=== PATIENT | female | born 1995 | race African-American/Black ===

== ENCOUNTER 2017-05-12 10:55 | Emergency (ER) | payer OTHER ==
[2017-05-12 11:22] VITALS: BP 152/70; PULSE 96; TEMP 98.3; BMI 31.1
--- NOTE | 2017-05-12 13:01 | PDOC ---
History of Present Illness - General Chief Complaint: Ear Problem Stated Complaint: LT EAR PAIN Time Seen by Provider: 05/12/17 12:38 History Source: Patient Exam Limitations: No Limitations - History of Present Illness Initial Comments: 05/12/17 12:56 22 yr female with c/o left ear pain for 2 days with swollen lymph node behind her ear. no fever no chills no throat pain no dental pain. Severity: mild Past History - Past Medical History Allergies/Adverse Reactions: Allergies Allergy/AdvReac Type Severity Reaction Status Date / Time No Known Allergies Allergy Verified 05/12/17 11:20 Home Medications: Ambulatory Orders Vit/Iron Fumarate/FA [ Tablet] 1 tab PO DAILY 02/19/16 Amoxicillin - [Amoxicillin 500mg Capsule -] 500 mg PO BID #14 capsule 05/12/17 Ciprofloxacin HCl/Dexameth [Ciprodex Otic Suspension] 3 drop BID #1 bottle Anemia: No Asthma: Yes Cancer: No Cardiac Disorders: No CVA: No COPD: No CHF: No Dementia: No Diabetes: No GI Disorders: No Disorders: No HTN: No Hypercholesterolemia: No Liver Disease: No Seizures: No Thyroid Disease: No - Surgical History Abdominal Surgery: No Appendectomy: No Cardiac Surgery: No Cholecystectomy: No Lung Surgery: No Neurologic Surgery: No Orthopedic Surgery: No - Immunization History Immunization Up to Date: Yes - Suicide/Smoking/Psychosocial Hx Smoking History: Never smoked Have you smoked in the past 12 months: No Hx Alcohol Use: No Drug/Substance Use Hx: No Substance Use Type: None Review of Systems - Review of Systems Able to Perform ROS?: Yes Is the patient limited Divehi proficient: No Constitutional: No: Symptoms Reported HEENTM: Yes: See HPI Respiratory: No: Symptoms reported Cardiac (ROS): No: Symptoms Reported ABD/GI: No: Symptoms Reported *Physical Exam - Vital Signs Last Vital Signs Temp Pulse Resp BP Pulse Ox 98.3 F 96 H 20 152/70 99 05/12/17 11:20 05/12/17 11:20 05/12/17 11:20 05/12/17 11:20 05/12/17 11:20 - Physical Exam General Appearance: Yes: Nourished, Appropriately Dressed HEENT: positive: EOMI, SAMMI, TM Bulging, TM Dull (narrowing of canal left ear with painful tragus, neg mastoid tenderness, swollen lymph node post auricular ) , TM Erythema Neck: positive: Supple. negative: Tender Respiratory/Chest: positive: Lungs Clear, Normal Breath Sounds Cardiovascular: positive: Regular Rhythm, Regular Rate Gastrointestinal/Abdominal: positive: Normal Bowel Sounds, Soft Musculoskeletal: positive: Normal Inspection Extremity: positive: Normal Capillary Refill, Normal Inspection, Normal Range of Motion Integumentary: positive: Normal Color, Dry, Warm Neurologic: positive: Alert, Normal Mood/Affect, Normal Response, Motor Strength /5 Medical Decision Making - Medical Decision Making 05/12/17 12:58 cc: left ear pain swollen lymph node neg fever neg swimming or travel on airplane denies congestion will treat for otitis externa and AOM, as the TM is bulging and dull pt agrees with plan of care all questions asked and answered at discharge. 05/12/17 23:37 *DC/Admit/Observation/Transfer Diagnosis at time of Disposition: Otitis externa Qualifiers: Otitis externa type: unspecified type Chronicity: acute Laterality: left Qualified Code(s): H60.502 - Unspecified acute noninfective otitis externa, left ear - Prescriptions Prescriptions: Amoxicillin - [Amoxicillin 500mg Capsule -] 500 mg PO BID #14 capsule Ciprofloxacin HCl/Dexameth [Ciprodex Otic Suspension] 3 drop BID #1 bottle - Referrals Referrals: Alton Wylie MD [Primary Care Provider] - Vic Dhillon MD [Staff Physician] - - Patient Instructions Additional Instructions: follow with the ENT doctor for follow up if symptoms worsen or do not improve take the medication as prescribed, continue to take motrin for pain
== END 2017-05-12 13:09 | disposition home or self-care (01) ==
LOC: JERFT 10:55
DX: H60.502 Unspecified acute noninfective otitis externa, left ear (principal)
CPT/HCPCS: 99281-25

== ENCOUNTER 2020-06-03 20:07 | Emergency (ER) | payer OTHER ==
[2020-06-03 20:19] VITALS: BP 114/72; PULSE 76; TEMP 98.5; BMI 19.3
--- OUTSIDE RECORDS SUMMARY | 2020-06-03 20:32 | XMS ---
:1995 Author Organization [facility] Support Name Relationship Address Phone [employer] Unavailable [address] [place] [address] SHAYAN JEWELL MOTHER [address] [phone] [place] [address] Re-disclosure Warning The records that you are about to access may contain information from federally- assisted alcohol or drug abuse programs. If such information is present, then the following federally mandated warning applies: This information has been disclosed to you from records protected by federal confidentiality rules (42 CFR part 2). The federal rules prohibit you from making any further disclosure of this information unless further disclosure is expressly permitted by the written consent of the person to whom it pertains or as otherwise permitted by 42 CFR part 2. A general authorization for the release of medical or other information is NOT sufficient for this purpose. The Federal rules restrict any use of the information to criminally investigate or prosecute any alcohol or drug abuse patient.The records that you are about to access may contain highly sensitive health information, the redisclosure of which is protected by Article 27-F of the [facility] Public Health law. If you continue you may haveaccess to information: Regarding HIV / AIDS; Provided by facilities licensed or operated by the [facility] Office of Mental Health; or Provided by the [facility] Office for People With Developmental Disabilities. If such information is present, then the following [facility] mandated warning applies: This information has been disclosed to you from confidential records which are protected by state law. State law prohibits you from making any further disclosure of this information without the specific written consent of the person to whom it pertains, or as otherwise permitted by law. Any unauthorized further disclosure in violation of state law may result in a fine or residential sentence or both. A general authorization for the release of medical or other information is NOT sufficient authorization for further disclosure. Insurance Providers Payer name Policy type Policy ID Covered Covered republican's Policy P moses / Coverage republican ID relationship to [employer] type [employer] [id number] SP [id number]
--- NOTE | 2020-06-03 20:34 | PDOC ---
History of Present Illness - General Chief Complaint: Nausea/Vomiting Stated Complaint: VOMITING Time Seen by Provider: 06/03/20 20:22 History Source: Patient Exam Limitations: No Limitations - History of Present Illness Initial Comments: 06/03/20 20:31 Pt is a 25-year-old female no past medical history presents to the ED with complaint of a cough that she has had for the last 1 week. She states her symptoms initially started as a sore throat which resolved with taking honey. Subsequently the cough developed. She states she has sputum production. She denies any shortness of breath. She states she is having posttussive emesis secondary to how much she is coughing. The cough keeps her up at night. She denies any fevers or chills. She denies any recent travel outside of the within the last 30 days or outside of [place] within the last 15. She denies any known Covid contacts. Past History - Medical History Allergies/Adverse Reactions: Allergies Allergy/AdvReac Type Severity Reaction Status Date / Time No Known Allergies Allergy Verified 05/12/17 11:20 Home Medications: Ambulatory Orders Vit/Iron Fum/Folic AC [ Tablet] 1 tab PO DAILY 02/19/16 Amoxicillin - [Amoxicillin 500mg Capsule -] 500 mg PO BID #14 capsule 05/12/17 Ciprofloxacin HCl/Dexameth [Ciprodex Otic Suspension] 3 drop BID #1 bottle 05/12/17 Albuterol Sulfate [Albuterol Sulfate Hfa] 2 puff IH Q4H PRN #1 hfa.aer.ad 06/03/20 Benzonatate [Tessalon Pearls -] 100 mg PO TID PRN #21 capsule 06/03/20 Anemia: No Asthma: Yes Cancer: No Cardiac Disorders: No CVA: No COPD: No CHF: No Dementia: No Diabetes: No GI Disorders: No Disorders: No HTN: No Hypercholesterolemia: No Liver Disease: No Seizures: No Thyroid Disease: No - Surgical History Abdominal Surgery: No Appendectomy: No Cardiac Surgery: No Cholecystectomy: No Lung Surgery: No Neurologic Surgery: No Orthopedic Surgery: No - Reproductive History Is Patient Now?: No - Immunization History Immunization Up to Date: Yes - Psycho-Social/Smoking History Smoking History: Current some day smoker Have you smoked in the past 12 months: No Number of Cigarettes Smoked Daily: 1 Information on smoking cessation initiated: Yes - Substance Abuse Hx (Audit-C & DAST Scrn) How often the patient has a drink containing alcohol: Never Score: In Men: 4 or > Positive; In Women: 3 or > Positive: 0 Screen Result (Pos requires Nsg. Audit-10AR): Negative Review of Systems - Review of Systems Comments:: 06/03/20 20:32 - Review of Systems Able to Perform ROS?: Yes Constitutional: No: Fever, Chills, Loss of Appetite, Night Sweats, Weakness HEENTM: No: Eye Pain, Vision changes, Ear Pain, Throat Pain, Throat Swelling, Mouth Pain, Difficulty Swallowing; resolved sore throat Respiratory: No: Shortness of Breath, Wheezing, positive: Cough, Sputum Production Cardiac (ROS): No: Chest Pain, Chest Tightness, Palpitations, Irregular Heart Beat, Edema ABD/GI: No: Nausea, Vomiting, Abdominal Pain, Diarrhea; positive: Posttussive emesis : No Dysuria, No Hematuria, No Frequency, No Urgency Musculoskeletal: No: Muscle Pain, Back Pain, Joint Pain, Muscle Weakness, Neck P ain Integumentary: No: Lesions, Rash Neurological: No: Headache, Numbness, Tingling, Weakness, Speech Difficulties *Physical Exam - Vital Signs Last Vital Signs Temp Pulse Resp BP Pulse Ox 98.5 F 76 20 114/72 100 06/03/20 20:14 06/03/20 20:14 06/03/20 20:14 06/03/20 20:14 06/03/20 20:14 - Physical Exam 06/03/20 20:33 - Physical Exam General Appearance: Nourished, Appropriately Dressed, No Distress HEENT: EOMI, Normal Voice, No Pharyngeal Erythema, No Muffled/Hoarse voice, No Tonsillar Exudate, No Tonsillar Erythema, No Nasal Congestion, No Rhinorrhea, Hearing Grossly Normal Neck: Supple, No Lymphadenopathy (R), No Lymphadenopathy (L), No Rigidity, No Decreased range of motion Respiratory/Chest: Lungs Clear, Normal Breath Sounds. No Respiratory Distress, No Accessory Muscle Use; good air entry bilaterally. No adventitious lung sounds appreciated. No wheezes/rales/rhonchi. Cardiovascular: Regular Rhythm, Regular Rate, S1, S2 Gastrointestinal/Abdominal: Normal Bowel Sounds, Soft. Non-tender, No Guarding, No Rebound, No Rigidity Musculoskeletal: Normal Inspection. No Decreased Range of Motion Extremity: Normal Capillary Refill, Normal Inspection Integumentary: Normal Color, Dry. No Rash Neurologic: habilitative interventionist II-XII NML intact, Fully Oriented, Alert, Normal Mood/Affect, Normal Response ED Treatment Course - RADIOLOGY Radiology Studies Ordered: Category Date Time Status CHEST PA & LAT [RAD] Stat Radiology 06/03/20 20:29 Ordered Medical Decision Making - Medical Decision Making 06/03/20 20:33 Assessment: Patient is a 25-year-old female with cough for the last 1 week sputum production. Plan: -Chest x-ray ordered -Covid swab offered but the patient declined -Will reassess 06/03/20 20:54 Chest x-ray reviewed and shows no acute process. We will discharge the patient with a prescription for Tessalon Perles and albuterol MDI. She will follow-up with her primary doctor within 1 to 2 days for repeat evaluation. She under stands and agrees this treatment plan and she is stable for discharge. Discharge - Discharge Information Problems reviewed: Yes Clinical Impression/Diagnosis: Productive cough, Post-tussive emesis Condition: Stable Disposition: HOME - Additional Discharge Information Prescriptions: Albuterol Sulfate [Albuterol Sulfate Hfa] 2 puff IH Q4H PRN #1 hfa.aer.ad PRN Reason: Cough Benzonatate [Tessalon Pearls -] 100 mg PO TID PRN #21 capsule PRN Reason: Cough - Follow up/Referral Referrals: ON STAFF,NOT [Primary Care Provider] - - Patient Discharge Instructions Patient Printed Discharge Instructions: DI for Cough -- Adult Additional Instructions: Get plenty of rest and drink plenty of fluids. Take the cough tablets as needed for cough. You can also use the inhaler as needed for cough as directed. Be sure to follow-up with your primary doctor within 1 to 2 days for repeat evaluation. - Post Discharge Activity Work/Back to School Note: Back to Work
== END 2020-06-03 21:29 | disposition home or self-care (01) ==
LOC: JERFT 20:07
DX: R05 Cough (principal); K91.0 Vomiting following gastrointestinal surgery
CPT/HCPCS: 71046-TC-FY; 99284-25

== ENCOUNTER 2024-09-14 11:05 | Emergency (ER) | payer OTHER ==
[2024-09-14 11:14] VITALS: BP 121/66; PULSE 72; RESP 20; TEMP 98.6; BMI 30.2
[2024-09-14] MEDS ORDERED: IBUPROFEN 400 MG TABLET (FP) PO ONE (13:23)
[2024-09-14] MEDS: IBUPROFEN 400 MG TABLET (FP) PO ONE (13:25)
== END 2024-09-14 14:16 | disposition home or self-care (01) ==
LOC: JERFT 11:05 → JER 11:05
DX: M25.571 Pain in right ankle and joints of right foot (principal); M25.471 Effusion, right ankle; R26.9 Unspecified abnormalities of gait and mobility
CPT/HCPCS: 73610-TC-RT-FY; 73630-TC-RT-FY; 99283-25